=== PATIENT | female | born 1990 | race Caucasian/White ===

== ENCOUNTER 2019-11-29 15:06 | Emergency (ER) | payer OTHER ==
[~2019-11-29] VITALS: Ht 157.5 cm; Wt 65.8 kg
[~2019-11-29 15:06] MED LIST: ACETAMINOPHEN-1 EAC1 PO; AUGMENTIN 875875 MG PO; CEPHALEXIN 500500 M3 PO; CIPROFLOXIN HC2.5 M1 OPHTHALMIC; HYDROCHLOROTHIA25 M2 PO; IBUPROFEN 800800 M1 PO; IRON; MACROBID 100 M100 M1 PO; MEDROLDOSEPACK PO; MOBIC7.5 MG PO; ONDANSETRON HCL4 M2 PO; PERCOCET PO; PHENERGAN 25 MG25 MG PO; POLYMYXIN B/TMP10 ML OPHTHALMIC; PRENATAL; ROBAXIN 750 MG750 MG PO; TRAMADOL 50 MG50 MG PO
[2019-11-29] MEDS ORDERED: NORVASC 2.5 MG2.5 M1 PO (15:19)
[2019-11-29] MEDS ORDERED: LIDOCAINE VISC100 ML SWISH&SPIT (15:43)
[2019-11-29] MEDS ORDERED: ONDANSETRON HCL4 M2 PO (15:43)
[2019-11-29] MEDS ORDERED: APAP W/CODEINE1 TA2 PO (15:43)
[2019-11-29] MEDS ORDERED: AUGMENTIN 500-1 EACH PO (15:43)
[2019-11-29 15:51] VITALS: BP 145/94
== END 2019-11-29 15:52 | disposition home or self-care (01) ==
LOC: M.ERS 15:06
DX: K04.7 Periapical abscess without sinus (principal); I10 Essential (primary) hypertension; Z88.6 Allergy status to analgesic agent; Z88.1 Allergy status to other antibiotic agents; Z88.5 Allergy status to narcotic agent; Z88.8 Allergy status to other drugs, medicaments and biological substances; Z98.890 Other specified postprocedural states

== ENCOUNTER → 2020-07-25 | Emergency (ER) | payer BC ==
[~2020-07-25] VITALS: Ht 154.9 cm; Wt 73.9 kg
[~2020-07-25] MED LIST changes: +APAP W/CODEINE1 TA2 PO; +AUGMENTIN 500-1 EACH PO; +LIDOCAINE VISC100 ML SWISH&SPIT; +MECLIZINE HCL25 M1 PO; +NORVASC 2.5 MG2.5 M1 PO; +XANAX 0.5 MG0.5 MG PO
[2020-07-25 15:07] VITALS: BP 180/99
[2020-07-25 15:33] LABS: ABSOLUTE BASOPHILS 0.1 thou/uL (0.0-0.2); ABSOLUTE EOSINOPHILS 0.4 thou/uL (0.0-0.7); ABSOLUTE MONOCYTES 0.8 thou/uL (0.0-1.2); ABSOLUTE NEUTROPHILS 5.4 thou/uL (1.6-8.1); BASOPHILS 1.1 %; EOSINOPHILS 4.3 %; HEMATOCRIT 43.3 % (37.0-47.0); HEMOGLOBIN 15.3 gm/dL (12.0-15.0); MCH 32.5 pg (26.0-34.0); MCHC 35.3 g/dL (28.0-37.0); MONOCYTES 7.9 %; MPV 7.9 fl. (7.2-11.1); NUCLEATED RBCS 0 /100WBC; PLATELET COUNT* 337 thou/uL (150-400); POLYS 55.7 %; WBC 9.7 thou/uL (4.0-11.0)
[2020-07-25 15:44] LABS: ANION GAP 7 mmol/L (7-16); BUN 14 mg/dL (7-18); CALCIUM 9.5 mg/dL (8.5-10.1); CHLORIDE 102 mmol/L (98-107); CO2 31 mmol/L (21-32); CREATININE 0.8 mg/dL (0.6-1.3); GLUCOSE 100 mg/dL (70-99); POTASSIUM 3.6 mmol/L (3.5-5.1); SODIUM 140 mmol/L (136-145)
[2020-07-25 15:45] LABS: APTT 24.9 Seconds (25.0-31.3); INR 0.9
[2020-07-25 15:58] LABS: ALBUMIN 4.2 g/dL (3.4-5.0); ALKALINE PHOSPHATASE 62 U/L (46-116); CK-MB MASS < 0.5 ng/mL (<0.5-3.6); LIPASE 109 U/L (73-393); MAGNESIUM 2.2 mg/dL (1.8-2.4); NT-PRO BRAIN NAT PEPTIDE 61 pg/mL (<300); SGOT 13 U/L (15-37); SGPT 26 U/L (30-65); TOTAL BILIRUBIN 0.2 mg/dL (<0.1-1.0); TOTAL PROTEIN 7.9 g/dL (6.4-8.2)
--- NOTE | 2020-07-27 10:18 | EKG ---
[place] [address] ELECTROCARDIOGRAM REPORT Name: ALVAROZULLY RYDERJOSE Jackeline Room: [facility]#: [id number] Admission: 07/25/20 Attend Phys: Discharge: Date of : 88 Date of Service: 07/25/20 1508 Report #: [id number] THIS REPORT FOR: //name// [facility] ED Test Date: 2020-07-25 Test Time: 15:08:32 Pat Name: JOSE TERRY Department: Room: Gender: [employer]: : 1990 Requested By: Asaf Jolly Order Number: [id number] MD: Dmitri Taveras Measurements Intervals [place] Rate: 73 P: 39 [place]: 133 QRS: 51 QRSD: 88 T: 29 QT: 387 QTc: 427 Interpretive Statements Sinus rhythm Compared to ECG 09/12/2018 11:57:53 no change Electronically Signed On 07-27-2020 10:18:39 CDT by Dmitri Taveras [email or web address] <ELECTRONICALLY SIGNED> By: Dmitri Taveras MD, [facility] 07/27/20 1018 1508 1508 Dmitri Taveras MD, [facility] /EPI
== END ==
LOC: M.ERS 15:04
PROVIDERS: Family Medicine
DX: F41.9 Anxiety disorder, unspecified (principal); I10 Essential (primary) hypertension; Z88.6 Allergy status to analgesic agent; Z88.5 Allergy status to narcotic agent; Z88.1 Allergy status to other antibiotic agents; Z88.8 Allergy status to other drugs, medicaments and biological substances; Z98.890 Other specified postprocedural states

== ENCOUNTER 2021-03-20 23:05 | Emergency (ER) | payer OTHER ==
[~2021-03-20] VITALS: Ht 154.9 cm; Wt 73.0 kg
[2021-03-21 02:24] VITALS: BP 145/98
== END 2021-03-21 02:24 | disposition left against medical advice (07) ==
LOC: M.ERS 23:05
DX: I10 Essential (primary) hypertension (principal); Z53.21 Procedure and treatment not carried out due to patient leaving prior to being seen by health care provider

== ENCOUNTER 2021-03-21 10:04 | Emergency (ER) | payer OTHER ==
[~2021-03-21] VITALS: Ht 154.9 cm; Wt 73.0 kg
[2021-03-21 12:24] VITALS: BP 139/94
== END 2021-03-21 12:26 | disposition home or self-care (01) ==
LOC: M.ERS 10:04
DX: I10 Essential (primary) hypertension (principal); F41.9 Anxiety disorder, unspecified; F17.210 Nicotine dependence, cigarettes, uncomplicated; Z79.899 Other long term (current) drug therapy; Z88.6 Allergy status to analgesic agent; Z88.1 Allergy status to other antibiotic agents